=== PATIENT | female | born 2000 | race Caucasian/White ===

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

== ENCOUNTER 2021-01-15 10:19 | Observation (INO) | payer BC ==
[2021-01-15] MEDS ORDERED: Lactated Ringers 1,000 ML IV ONE (10:54)
[2021-01-15] MEDS ORDERED: Sodium Chloride 0.9% 10 ML Syringe FLUSH PRN (10:54)
[2021-01-15] MEDS ORDERED: Ondansetron 4 MG/2 ML SDV IVPUSH ONE (10:54)
[2021-01-15] MEDS ORDERED: Morphine 4 MG/ML Syringe IVPUSH ONE (10:54)
[2021-01-15] MEDS ORDERED: Sodium Chloride 0.9% 2.5 ML Syringe FLUSH PRN (10:54)
[2021-01-15] MEDS ORDERED: Ketorolac 15 MG/ML SDV IVPUSH ONE (10:54)
--- NOTE | 2021-01-15 11:00 | EDM.PDOC ---
ED HPI GENERAL MEDICAL PROBLEM - General Chief Complaint: Abdominal Pain Stated Complaint: ABDOMINAL PAIN Time Seen by Provider: 01/15/21 10:21 Source of Information: Reports: Patient History Limitations: Reports: No Limitations - History of Present Illness INITIAL COMMENTS - FREE TEXT/NARRATIVE: 20-year-old female with history of UTI presents with right-sided abdominal pain. Abdominal pain is localized to the right lower quadrant, radiates to the right adnexa, described as cramping sensation that waxes and wanes over the past week, with intermittent sharpness. Pain is moderate. Associated with nausea, vomiting, anorexia, dysuria. She has been having vaginal bleeding since December 16 and has been using about 2 pads per day, she takes Apri controls but has stopped for [address] Dyer at [place] on Tuesday and was prescribed estrogen. ROS: A 10-point review of systems, other than pertinent positives and negatives as stated per HPI, is otherwise negative Past medical history: No additional pertinent history Past Surgical history: No additional pertinent history Social history: No additional pertinent history Family history: No additional pertinent history PHYSICAL EXAM General: AOx4, GCS = 15, moderate distress HEENT: dry mucous membrane Neck: supple, no meningismus, no Kernig or Brudzinski Cardiac: S1S2 RRR Respiratory: CTAB, no crackles or rales, no wheezing Abdomen: Soft, RLQ and Right adnexal ttp, no rebound or guarding, nondistended, no pulsatile mass. : deferred per patient Back: nontender Musculoskeletal: NVI distally, no deformity Neuro: No focal deficits, CN 2 - 12 WNL. Abdominal Pain Score (Numeric/FACES): 10 - Related Data Allergies Allergy/AdvReac Type Severity Reaction Status Date / Time azithromycin [From Zithromax] Allergy Hives Verified 01/15/21 10:27 ciprofloxacin [From Cipro] Allergy Nausea and Verified 01/15/21 10:27 Vomiting clindamycin Allergy Hives Verified 01/15/21 10:27 lamotrigine [From Lamictal] Allergy Other Verified 01/15/21 10:27 oseltamivir [From Tamiflu] Allergy Other Verified 01/15/21 10:27 Home Meds: Home Meds Desogestrel-Ethinyl Estradiol [Apri 28 Day Tablet] 1 tab PO DAILY 12/08/16 [History] Escitalopram [Lexapro] 10 mg PO DAILY 12/08/16 [History] traZODone 150 mg PO BEDTIME 12/08/16 [History] Albuterol [Proventil Neb Soln] 0.83 mg NEB Q4HRRT 03/01/17 [History] OXcarbazepine [Trileptal] 300 mg PO BID 07/19/17 [History] Prazosin [Minpress] 1 mg BEDTIME 02/09/18 [History] ondansetron HCL [Zofran] 4 mg PO Q4HR #12 tablet 01/24/19 [Rx] Past Medical History - Past Health History Medical/Surgical History: Denies Medical/Surgical History HEENT History: Reports: None Cardiovascular History: Reports: None Respiratory History: Reports: Asthma Gastrointestinal History: Reports: None Genitourinary History: Reports: None COTTON DISPATCHER History: Reports: None Musculoskeletal History: Reports: None Neurological History: Reports: Other (See Below) Other Neuro History: pseudoseizure Psychiatric History: Reports: ADHD, Anxiety, Bipolar, Panic Attack, PTSD Endocrine/Metabolic History: Reports: None Hematologic History: Reports: None Immunologic History: Reports: None Oncologic (Cancer) History: Reports: None Dermatologic History: Reports: None - Infectious Disease History Infectious Disease History: Reports: Influenza - Past Surgical History Head Surgeries/Procedures: Reports: None HEENT Surgical History: Reports: Other (See Below) Other HEENT Surgeries/Procedures: blocked tear duct Cardiovascular Surgical History: Reports: None Respiratory Surgical History: Reports: None GI Surgical History: Reports: None Female Surgical History: Reports: None Endocrine Surgical History: Reports: None Neurological Surgical History: Reports: None Musculoskeletal Surgical History: Reports: None Oncologic Surgical History: Reports: None Dermatological Surgical History: Reports: None Social & Family History - Family History Family Medical History: No Pertinent Family History HEENT: Reports: Sinusitis Cardiac: Reports: CAD, Hypertension Respiratory: Reports: Asthma, COPD GI: Reports: Hepatitis, Irritable Bowel Syndrome : Reports: None OBGYN: Reports: Fibroids, Musculoskeletal: Reports: Arthritis, Fibromyalgia, Osteoarthritis, RA Neurological: Reports: Alzheimers Disease, Dementia, Migraines, Seizure, TIA Psychiatric: Reports: ADHD, Anxiety, Bipolar Endocrine/Metabolic: Reports: Hypothyroidism Hematologic: Reports: Anemia Immunologic: Reports: None Dermatologic: Reports: Eczema Oncologic: Reports: Breast, Leukemia - Caffeine Use Caffeine Use: Reports: None, Soda Caffeine Use Comment: ocassional, not every day - Living Situation & Occupation Living situation: Reports: Single, with Family Occupation: Student ED ROS GENERAL - Review of Systems Review Of Systems: See Below (see dictation) ED EXAM, GENERAL - Physical Exam Exam: See Below (see dictation) Course - Vital Signs Last Recorded V/S: Last Vital Signs Temp Pulse 97 01/15/21 14:59 Resp 16 01/15/21 14:59 BP 107/49 L 01/15/21 14:59 Pulse Ox 98 01/15/21 14:59 - Orders/Labs/Meds Orders: Active Orders 24 hr Category Date Time Status Patient Status [ADT] Routine ADT 01/15/21 15:19 Ordered CORONAVIRUS COVID-19 GRACIELA [MOLEC] Stat Lab 01/15/21 15:08 Ordered CULTURE URINE [RM] Stat Lab 01/15/21 10:23 Received Lactated Ringers [Ringers, Lactated] 1,000 ml Med 01/15/21 15:15 Active IV ASDIRECTED Sodium Chloride 0.9% [Saline Flush] Med 01/15/21 10:54 Active 10 ml FLUSH ASDIRECTED PRN Sodium Chloride 0.9% [Saline Flush] Med 01/15/21 10:54 Active 2.5 ml FLUSH ASDIRECTED PRN cefOXitin [Mefoxin in Dextrose,Iso-Osm 2 GM/50 ML] 2 gm Med 01/15/21 15:15 Active Premix Bag 1 bag IV ONETIME Saline Lock Insert [OM.PC] Stat Oth 01/15/21 10:55 Ordered Medication Orders Lactated Ringer's (Ringers, Lactated) 1,000 mls @ 150 mls/hr IV ASDIRECTED LINK Cefoxitin Sodium 2 gm/ Premix 50 mls @ 100 mls/hr IV ONETIME ONE Stop: 01/15/21 15:44 Sodium Chloride (Saline Flush) 10 ml FLUSH ASDIRECTED PRN PRN Reason: Keep Vein Open Last Admin: 01/15/21 11:12 Dose: 10 ml Documented by: [id number] Sodium Chloride (Saline Flush) 2.5 ml FLUSH ASDIRECTED PRN PRN Reason: Keep Vein Open Last Admin: 01/15/21 11:12 Dose: 2.5 ml Documented by: [id number] Labs: Laboratory Tests 01/15/21 01/15/21 01/15/21 Range/Units 10:23 10:23 10:25 WBC 7.57 (4.0-11.0) K/uL RBC 4.80 (4.30-5.90) M/uL Hgb 14.7 (12.0-16.0) g/dL Hct 43.5 (36.0-46.0) % MCV 90.6 (80.0-98.0) fL MCH 30.6 (27.0-32.0) pg MCHC 33.8 (31.0-37.0) g/dL RDW Std Deviation 40.8 (28.0-62.0) fl RDW Coeff of Vanessa 12 (11.0-15.0) % Plt Count 233 (150-400) K/uL MPV 10.20 (7.40-12.00) fL Neut % (Auto) 56.4 (48.0-80.0) % Lymph % (Auto) 35.8 (16.0-40.0) % Walton % (Auto) 7.1 (0.0-15.0) % Eos % (Auto) 0.4 (0.0-7.0) % Baso % (Auto) 0.3 (0.0-1.5) % Neut # (Auto) 4.3 (1.4-5.7) K/uL Lymph # (Auto) 2.7 H (0.6-2.4) K/uL Walton # (Auto) 0.5 (0.0-0.8) K/uL Eos # (Auto) 0.0 (0.0-0.7) K/uL Baso # (Auto) 0.0 (0.0-0.1) K/uL Nucleated RBC % 0.0 /100WBC Nucleated RBCs # 0 K/uL Lactate (0.20-2.00) mmol/L Sodium (136-145) mmol/L Potassium (3.5-5.1) mmol/L Chloride (98-107) mmol/L Carbon Dioxide (21.0-32.0) mmol/L BUN (7.0-18.0) mg/dL Creatinine (0.6-1.0) mg/dL Est Cr Clr Drug Dosing mL/min Estimated GFR (MDRD) ml/min Glucose (74-106) mg/dL Calcium (8.5-10.1) mg/dL Total Bilirubin (0.2-1.0) mg/dL AST (15-37) IU/L ALT (14-63) IU/L Alkaline Phosphatase (46-116) U/L Total Protein (6.4-8.2) g/dL Albumin (3.4-5.0) g/dL Globulin (2.6-4.0) g/dL Albumin/Globulin Ratio (0.9-1.6) Lipase (73-393) U/L Urine Color YELLOW Urine Appearance SLT CLOUDY Urine pH 7.5 (5.0-8.0) Ur Specific [place] 1.020 (1.001-1.035) Urine Protein NEGATIVE (NEGATIVE) mg/dL Urine Glucose (UA) NEGATIVE (NEGATIVE) mg/dL Urine Ketones TRACE H (NEGATIVE) mg/dL Urine Occult Blood TRACE-LYSED H (NEGATIVE) Urine Nitrite NEGATIVE (NEGATIVE) Urine Bilirubin NEGATIVE (NEGATIVE) Urine Urobilinogen 1.0 (<2.0) EU/dL Ur Leukocyte Esterase NEGATIVE (NEGATIVE) Urine RBC 0-2 (0-2/HPF) Urine WBC 0-3 (0-5/HPF) Ur Epithelial Cells FEW (NONE-FEW) Amorphous Sediment HEAVY (NEGATIVE) Urine Bacteria 2+ H (NEGATIVE) Urine Mucus LIGHT (NONE-MOD) Urine HCG, Qual NEGATIVE (NEGATIVE) 01/15/21 01/15/21 Range/Units 10:25 11:13 WBC (4.0-11.0) K/uL RBC (4.30-5.90) M/uL Hgb (12.0-16.0) g/dL Hct (36.0-46.0) % MCV (80.0-98.0) fL MCH (27.0-32.0) pg MCHC (31.0-37.0) g/dL RDW Std Deviation (28.0-62.0) fl RDW Coeff of Vanessa (11.0-15.0) % Plt Count (150-400) K/uL MPV (7.40-12.00) fL Neut % (Auto) (48.0-80.0) % Lymph % (Auto) (16.0-40.0) % Walton % (Auto) (0.0-15.0) % Eos % (Auto) (0.0-7.0) % Baso % (Auto) (0.0-1.5) % Neut # (Auto) (1.4-5.7) K/uL Lymph # (Auto) (0.6-2.4) K/uL Walton # (Auto) (0.0-0.8) K/uL Eos # (Auto) (0.0-0.7) K/uL Baso # (Auto) (0.0-0.1) K/uL Nucleated RBC % /100WBC Nucleated RBCs # K/uL Lactate 0.4 (0.20-2.00) mmol/L Sodium 141 (136-145) mmol/L Potassium 4.1 (3.5-5.1) mmol/L Chloride 105 (98-107) mmol/L Carbon Dioxide 24.6 (21.0-32.0) mmol/L BUN 10 (7.0-18.0) mg/dL Creatinine 0.7 (0.6-1.0) mg/dL Est Cr Clr Drug Dosing 92.85 mL/min Estimated GFR (MDRD) > 60.0 ml/min Glucose 94 (74-106) mg/dL Calcium 9.1 (8.5-10.1) mg/dL Total Bilirubin 0.4 (0.2-1.0) mg/dL AST 24 (15-37) IU/L ALT 53 (14-63) IU/L Alkaline Phosphatase 69 (46-116) U/L Total Protein 7.4 (6.4-8.2) g/dL Albumin 3.9 (3.4-5.0) g/dL Globulin 3.5 (2.6-4.0) g/dL Albumin/Globulin Ratio 1.1 (0.9-1.6) Lipase 46 L (73-393) U/L Urine Color Urine Appearance Urine pH (5.0-8.0) Ur Specific [place] (1.001-1.035) Urine Protein (NEGATIVE) mg/dL Urine Glucose (UA) (NEGATIVE) mg/dL Urine Ketones (NEGATIVE) mg/dL Urine Occult Blood (NEGATIVE) Urine Nitrite (NEGATIVE) Urine Bilirubin (NEGATIVE) Urine Urobilinogen (<2.0) EU/dL Ur Leukocyte Esterase (NEGATIVE) Urine RBC (0-2/HPF) Urine WBC (0-5/HPF) Ur Epithelial Cells (NONE-FEW) Amorphous Sediment (NEGATIVE) Urine Bacteria (NEGATIVE) Urine Mucus (NONE-MOD) Urine HCG, Qual (NEGATIVE) Meds: Medications Generic Name Dose Route Start Last Admin Trade Name Freq PRN Reason Stop Dose Admin Lactated Ringer's 1,000 mls @ 150 mls/hr 01/15/21 15:15 Ringers, Lactated IV ASDIRECTED LINK Cefoxitin Sodium 2 gm/ Premix 50 mls @ 100 mls/hr 01/15/21 15:15 IV 01/15/21 15:44 ONETIME ONE Sodium Chloride 10 ml 01/15/21 10:54 01/15/21 11:12 Saline Flush FLUSH 10 ml ASDIRECTED PRN Administration Keep Vein Open Sodium Chloride 2.5 ml 01/15/21 10:54 01/15/21 11:12 Saline Flush FLUSH 2.5 ml ASDIRECTED PRN Administration Keep Vein Open Discontinued Medications Generic Name Dose Route Start Last Admin Trade Name Freq PRN Reason Stop Dose Admin Lactated Ringer's 1,000 mls @ 999 mls/hr 01/15/21 10:54 01/15/21 11:12 Ringers, Lactated IV 01/15/21 11:54 999 mls/hr .BOLUS ONE Administration Iopamidol 75 ml 01/15/21 12:35 01/15/21 12:37 Isovue Multipack-370 (76%) IVPUSH 01/15/21 12:36 75 ml ONETIME STA Administration Ketorolac Tromethamine 15 mg 01/15/21 10:54 01/15/21 11:12 Toradol IVPUSH 01/15/21 10:55 15 mg ONETIME ONE Administration Morphine Sulfate 4 mg 01/15/21 10:54 01/15/21 11:13 Morphine IVPUSH 01/15/21 10:55 4 mg ONETIME ONE Administration Ondansetron HCl 4 mg 01/15/21 10:54 01/15/21 11:13 Zofran IVPUSH 01/15/21 10:55 4 mg ONETIME ONE Administration - Re-Assessments/Exams Free Text/Narrative Re-Assessment/Exam: 01/15/21 1430: Patient reassessed after Toradol and morphine, she is still exquisitely tender to right lower quadrant at McBurney's point, will consult surgery. 01/15/21 1510: Dr. Juan Alberto Azul assessed patient in the ER, he discussed the case with mom and the patient for admission for serial abdominal exam versus operative approach. Patient and mom elects to for operative approach., Departure - Departure Time of Disposition: 15:10 Disposition: Still A Patient 30 Condition: Fair Clinical Impression: Abdominal pain - Discharge Information Referrals: PCP,None [Primary Care Provider] - Forms: ED Department Discharge Sepsis Event Note (ED) - Evaluation Sepsis Screening Result: No Definite Risk - Focused Exam Vital Signs: Vital Signs Pulse Resp BP Pulse Ox 01/15/21 14:59 97 16 107/49 L 98 01/15/21 13:17 79 18 111/58 L 96 01/15/21 11:16 89 18 121/67 97 01/15/21 10:27 98 20 156/86 H 96 - My Orders Last 24 Hours: My Active Orders 01/15/21 10:23 CULTURE URINE [RM] Stat 01/15/21 10:54 Sodium Chloride 0.9% [Saline Flush] 10 ml FLUSH ASDIRECTED PRN Sodium Chloride 0.9% [Saline Flush] 2.5 ml FLUSH ASDIRECTED PRN 01/15/21 10:55 Saline Lock Insert [OM.PC] Stat 01/15/21 15:08 CORONAVIRUS COVID-19 GRACIELA [MOLEC] Stat 01/15/21 15:15 Lactated Ringers [Ringers, Lactated] 1,000 ml IV ASDIRECTED cefOXitin [Mefoxin in Dextrose,Iso-Osm 2 GM/50 ML] 2 gm Premix Bag 1 bag IV ONETIME 01/15/21 15:19 Patient Status [ADT] Routine - Assessment/Plan Last 24 Hours: My Active Orders 01/15/21 10:23 CULTURE URINE [RM] Stat 01/15/21 10:54 Sodium Chloride 0.9% [Saline Flush] 10 ml FLUSH ASDIRECTED PRN Sodium Chloride 0.9% [Saline Flush] 2.5 ml FLUSH ASDIRECTED PRN 01/15/21 10:55 Saline Lock Insert [OM.PC] Stat 01/15/21 15:08 CORONAVIRUS COVID-19 GRACIELA [MOLEC] Stat 01/15/21 15:15 Lactated Ringers [Ringers, Lactated] 1,000 ml IV ASDIRECTED cefOXitin [Mefoxin in Dextrose,Iso-Osm 2 GM/50 ML] 2 gm Premix Bag 1 bag IV ONETIME 01/15/21 15:19 Patient Status [ADT] Routine
[2021-01-15 11:13] LABS: BLOOD UREA NITROGEN,BUN 10 mg/dL (7.0-18.0); CARBON DIOXIDE,CO2 24.6 mmol/L (21.0-32.0); CHLORIDE,CL 105 mmol/L (98-107); GLUCOSE RANDOM 94 mg/dL (74-106); LIPASE 46 U/L (73-393); POTASSIUM,K 4.1 mmol/L (3.5-5.1); SODIUM,NA 141 mmol/L (136-145)
[2021-01-15] MEDS ORDERED: Iopamidol 755 MG/ML 500 ML Multipack Bottle IVPUSH STA (12:35)
--- NOTE | 2021-01-15 12:49 | US ---
INDICATION: Right adnexal pain TECHNIQUE: Ultrasound pelvis transvaginal only. COMPARISON: None FINDINGS: Uterus: 7.3 centimeter x 3.8 centimeter x 3.3 centimeter. Normal echotexture of the myometrium. No masses. Endometrium: Endometrium measures 7.6 mm in thickness small amount of fluid in the endometrial canal Right ovary: The right ovary is not visualized. Left ovary: 2.0 centimeter x 1.7 centimeter x 2.0 centimeter. No ovarian or adnexal masses. 1.5 centimeter dominant follicle. Normal arterial and venous blood flow. Cul-de-sac: No significant free fluid. IMPRESSION: The endometrium measures 7.6 millimeters in thickness with a small amount of fluid in the endometrial canal. The right ovary is not visualized. Dictated by Gennaro Singh MD @ Jan 15 2021 12:47PM Signed by Dr. Gennaro Singh @ Jan 15 2021 12:47PM
--- NOTE | 2021-01-15 13:15 | CT ---
INDICATION: Right adnexal pain TECHNIQUE: CT abdomen and pelvis acquired with IV contrast. 75 cc Isovue 370 COMPARISON: CT scan abdomen pelvis 04/19/2020 and pelvic ultrasound 01/15/2021 FINDINGS: Lower chest: Unremarkable. Liver: Unremarkable. Spleen: Unremarkable. Pancreas: Unremarkable. Gallbladder and bile ducts: Unremarkable. Kidneys: Unremarkable. Adrenal glands: Unremarkable. GI tract: Diffuse colonic fecal retention. Appendix is normal. Vascular structures: Unremarkable. Lymph nodes: Unremarkable. Miscellaneous: Fat containing umbilical hernia. No free air or significant free fluid. Pelvic Organs: The uterus, ovaries and right left adnexa are grossly normal. Bones: Unremarkable for age. IMPRESSION: The ovaries and adnexa bilaterally grossly normal. No definitive findings to explain the patient`s symptoms. Diffuse colonic fecal retention. Please note that all CT scans at this facility use dose modulation, iterative reconstruction, and/or weight-based dosing when appropriate to reduce radiation dose to as low as reasonably achievable. Dictated by Gennaro Singh MD @ Jan 15 2021 1:01PM Signed by Dr. Gennaro Singh @ Jan 15 2021 1:13PM
[2021-01-15] MEDS ORDERED: Lactated Ringers 1,000 ML IV SCH (15:15)
[2021-01-15] MEDS ORDERED: cefOXitin 2 GM in Premix Bag 1 BAG IV ONE (15:15)
--- NOTE | 2021-01-15 15:48 | PCM.PREANE ---
Preanesthetic Assessment - Anesthesia/Transfusion/Family Hx Anesthesia History: No Prior Anesthesia Family History of Anesthesia Reaction: No Transfusion History: No Prior Transfusion(s) Intubation History: Unknown - Review of Systems General: No Symptoms Pulmonary: No Symptoms Cardiovascular: No Symptoms Gastrointestinal: Abdominal Pain Neurological: No Symptoms Other: Reports: None - Physical Assessment Vital Signs: Last Vital Signs Temp Pulse 97 01/15/21 14:59 Resp 16 01/15/21 14:59 BP 107/49 L 01/15/21 14:59 Pulse Ox 98 01/15/21 14:59 Height: 4 ft 7 in Weight: 51.71 kg ASA Class: 2E Mental Status: Alert & Oriented x3 Airway Class: Mallampati = 1 Dentition: Reports: Normal Dentition Thyro-Mental Finger Breadths: 3 Mouth Opening Finger Breadths: 2 ROM/Head Extension: Full Lungs: Clear to Auscultation, Normal Respiratory Effort Cardiovascular: Regular Rate, Regular Rhythm - Lab Values: Laboratory Last Values WBC 7.57 K/uL (4.0-11.0) 01/15/21 10:25 RBC 4.80 M/uL (4.30-5.90) 01/15/21 10:25 Hgb 14.7 g/dL (12.0-16.0) 01/15/21 10:25 Hct 43.5 % (36.0-46.0) 01/15/21 10:25 MCV 90.6 fL (80.0-98.0) 01/15/21 10:25 MCH 30.6 pg (27.0-32.0) 01/15/21 10:25 MCHC 33.8 g/dL (31.0-37.0) 01/15/21 10:25 RDW Std Deviation 40.8 fl (28.0-62.0) 01/15/21 10:25 RDW Coeff of Vanessa 12 % (11.0-15.0) 01/15/21 10:25 Plt Count 233 K/uL (150-400) 01/15/21 10:25 MPV 10.20 fL (7.40-12.00) 01/15/21 10:25 Neut % (Auto) 56.4 % (48.0-80.0) 01/15/21 10:25 Lymph % (Auto) 35.8 % (16.0-40.0) 01/15/21 10:25 [place] % (Auto) 7.1 % (0.0-15.0) 01/15/21 10:25 Eos % (Auto) 0.4 % (0.0-7.0) 01/15/21 10:25 Baso % (Auto) 0.3 % (0.0-1.5) 01/15/21 10:25 Neut # (Auto) 4.3 K/uL (1.4-5.7) 01/15/21 10:25 Lymph # (Auto) 2.7 K/uL (0.6-2.4) H 01/15/21 10:25 [place] # (Auto) 0.5 K/uL (0.0-0.8) 01/15/21 10:25 Eos # (Auto) 0.0 K/uL (0.0-0.7) 01/15/21 10:25 Baso # (Auto) 0.0 K/uL (0.0-0.1) 01/15/21 10:25 Nucleated RBC % 0.0 /100WBC 01/15/21 10:25 Nucleated RBCs # 0 K/uL 01/15/21 10:25 Lactate 0.4 mmol/L (0.20-2.00) 01/15/21 11:13 Sodium 141 mmol/L (136-145) 01/15/21 10:25 Potassium 4.1 mmol/L (3.5-5.1) 01/15/21 10:25 Chloride 105 mmol/L (98-107) 01/15/21 10:25 Carbon Dioxide 24.6 mmol/L (21.0-32.0) 01/15/21 10:25 BUN 10 mg/dL (7.0-18.0) 01/15/21 10:25 Creatinine 0.7 mg/dL (0.6-1.0) 01/15/21 10:25 Est Cr Clr Drug Dosing 92.85 mL/min 01/15/21 10:25 Estimated GFR (MDRD) > 60.0 ml/min 01/15/21 10:25 Glucose 94 mg/dL (74-106) 01/15/21 10:25 Calcium 9.1 mg/dL (8.5-10.1) 01/15/21 10:25 Total Bilirubin 0.4 mg/dL (0.2-1.0) 01/15/21 10:25 AST 24 IU/L (15-37) 01/15/21 10:25 ALT 53 IU/L (14-63) 01/15/21 10:25 Alkaline Phosphatase 69 U/L (46-116) 01/15/21 10:25 Total Protein 7.4 g/dL (6.4-8.2) 01/15/21 10:25 Albumin 3.9 g/dL (3.4-5.0) 01/15/21 10:25 Globulin 3.5 g/dL (2.6-4.0) 01/15/21 10:25 Albumin/Globulin Ratio 1.1 (0.9-1.6) 01/15/21 10:25 Lipase 46 U/L (73-393) L 01/15/21 10:25 Urine Color YELLOW 01/15/21 10:23 Urine Appearance SLT CLOUDY 01/15/21 10:23 Urine pH 7.5 (5.0-8.0) 01/15/21 10:23 Ur Specific [place] 1.020 (1.001-1.035) 01/15/21 10:23 Urine Protein NEGATIVE mg/dL (NEGATIVE) 01/15/21 10:23 Urine Glucose (UA) NEGATIVE mg/dL (NEGATIVE) 01/15/21 10:23 Urine Ketones TRACE mg/dL (NEGATIVE) H 01/15/21 10:23 Urine Occult Blood TRACE-LYSED (NEGATIVE) H 01/15/21 10:23 Urine Nitrite NEGATIVE (NEGATIVE) 01/15/21 10:23 Urine Bilirubin NEGATIVE (NEGATIVE) 01/15/21 10:23 Urine Urobilinogen 1.0 EU/dL (<2.0) 01/15/21 10:23 Ur Leukocyte Esterase NEGATIVE (NEGATIVE) 01/15/21 10:23 Urine RBC 0-2 (0-2/HPF) 01/15/21 10:23 Urine WBC 0-3 (0-5/HPF) 01/15/21 10:23 Ur Epithelial Cells FEW (NONE-FEW) 01/15/21 10:23 Amorphous Sediment HEAVY (NEGATIVE) 01/15/21 10:23 Urine Bacteria 2+ (NEGATIVE) H 01/15/21 10:23 Urine Mucus LIGHT (NONE-MOD) 01/15/21 10:23 Urine HCG, Qual NEGATIVE (NEGATIVE) 01/15/21 10:23 - Allergies Allergies/Adverse Reactions: Allergies Allergy/AdvReac Type Severity Reaction Status Date / Time azithromycin [From Zithromax] Allergy Hives Verified 01/15/21 10:27 ciprofloxacin [From Cipro] Allergy Nausea and Verified 01/15/21 10:27 Vomiting clindamycin Allergy Hives Verified 01/15/21 10:27 lamotrigine [From Lamictal] Allergy Other Verified 01/15/21 10:27 oseltamivir [From Tamiflu] Allergy Other Verified 01/15/21 10:27 - Blood Blood Available: No - Anesthesia Plan Pre-Op Medication Ordered: None - Acknowledgements Anesthesia Type Planned: General Anesthesia Pt an Appropriate Candidate for the Planned Anesthesia: Yes Alternatives and Risks of Anesthesia Discussed w Pt/Guardian: Yes Pt/Guardian Understands and Agrees with Anesthesia Plan: Yes PreAnesthesia Questionnaire - Past Health History Medical/Surgical History: Denies Medical/Surgical History HEENT History: Reports: None Cardiovascular History: Reports: None Respiratory History: Reports: Asthma Gastrointestinal History: Reports: None Genitourinary History: Reports: None TOP LIFTER History: Reports: None Musculoskeletal History: Reports: None Neurological History: Reports: Other (See Below) Other Neuro History: pseudoseizure Psychiatric History: Reports: ADHD, Anxiety, Bipolar, Panic Attack, PTSD Endocrine/Metabolic History: Reports: None Hematologic History: Reports: None Immunologic History: Reports: None Oncologic (Cancer) History: Reports: None Dermatologic History: Reports: None - Infectious Disease History Infectious Disease History: Reports: Influenza - Past Surgical History Head Surgeries/Procedures: Reports: None HEENT Surgical History: Reports: Other (See Below) Other HEENT Surgeries/Procedures: blocked tear duct Cardiovascular Surgical History: Reports: None Respiratory Surgical History: Reports: None GI Surgical History: Reports: None Female Surgical History: Reports: None Endocrine Surgical History: Reports: None Neurological Surgical History: Reports: None Musculoskeletal Surgical History: Reports: None Oncologic Surgical History: Reports: None Dermatological Surgical History: Reports: None - SUBSTANCE USE Tobacco Use Within Last Twelve Months: No - HOME MEDS Home Medications: Home Meds Desogestrel-Ethinyl Estradiol [Apri 28 Day Tablet] 1 tab PO DAILY 12/08/16 [History] Escitalopram [Lexapro] 10 mg PO DAILY 12/08/16 [History] traZODone 150 mg PO BEDTIME 12/08/16 [History] Albuterol [Proventil Neb Soln] 0.83 mg NEB Q4HRRT 03/01/17 [History] OXcarbazepine [Trileptal] 300 mg PO BID 07/19/17 [History] Prazosin [Minpress] 1 mg BEDTIME 02/09/18 [History] ondansetron HCL [Zofran] 4 mg PO Q4HR #12 tablet 01/24/19 [Rx] - CURRENT (IN HOUSE) MEDS Current Meds: Current Medications Lactated Ringer's (Ringers, Lactated) 1,000 mls @ 150 mls/hr IV ASDIRECTED LINK Last Admin: 01/15/21 15:34 Dose: 150 mls/hr Documented by: Cefoxitin Sodium 2 gm/ Premix 50 mls @ 100 mls/hr IV ONETIME ONE Stop: 01/15/21 15:44 Last Admin: 01/15/21 15:34 Dose: 100 mls/hr Documented by: Sodium Chloride (Saline Flush) 10 ml FLUSH ASDIRECTED PRN PRN Reason: Keep Vein Open Last Admin: 01/15/21 11:12 Dose: 10 ml Documented by: Sodium Chloride (Saline Flush) 2.5 ml FLUSH ASDIRECTED PRN PRN Reason: Keep Vein Open Last Admin: 01/15/21 11:12 Dose: 2.5 ml Documented by: Discontinued Medications Lactated Ringer's (Ringers, Lactated) 1,000 mls @ 999 mls/hr IV .BOLUS ONE Stop: 01/15/21 11:54 Last Admin: 01/15/21 11:12 Dose: 999 mls/hr Documented by: Iopamidol (Isovue Multipack-370 (76%)) 75 ml IVPUSH ONETIME STA Stop: 01/15/21 12:36 Last Admin: 01/15/21 12:37 Dose: 75 ml Documented by: Ketorolac Tromethamine (Toradol) 15 mg IVPUSH ONETIME ONE Stop: 01/15/21 10:55 Last Admin: 01/15/21 11:12 Dose: 15 mg Documented by: Morphine Sulfate (Morphine) 4 mg IVPUSH ONETIME ONE Stop: 01/15/21 10:55 Last Admin: 01/15/21 11:13 Dose: 4 mg Documented by: Ondansetron HCl (Zofran) 4 mg IVPUSH ONETIME ONE Stop: 01/15/21 10:55 Last Admin: 01/15/21 11:13 Dose: 4 mg Documented by:
[2021-01-15] MEDS ORDERED: Ondansetron 4 MG/2 ML SDV ONE (16:23)
[2021-01-15] MEDS ORDERED: Midazolam 1 MG/ML 2 ML SDV ONE (16:23)
[2021-01-15] MEDS ORDERED: Rocuronium Bromide 50 MG/5 ML Syringe ONE (16:23)
[2021-01-15] MEDS ORDERED: Dexamethasone 4 MG/ML 5 ML MDV ONE (16:23)
[2021-01-15] MEDS ORDERED: fentaNYL 100 MCG/2 ML SDV ONE (16:23)
[2021-01-15] MEDS ORDERED: Lidocaine 2% 5 ML SDV ONE (16:23)
[2021-01-15] MEDS ORDERED: Propofol 200 MG/20 ML SDV ONE (16:23)
[2021-01-15] MEDS ORDERED: Ketorolac 30 MG/ML SDV IVPUSH ONE ×2 (18:26→20:37)
--- NOTE | 2021-01-15 19:10 | PCM.SN.2 ---
- Free Text/Narrative Note: pain no relieve w pain meds, and peritoneal upon jumping up and down and when riding in the car; CT remarked appendix is normal in appearance; with unrelenting pain, and n/v in 24 hrs; pt would benefit from surgical intervention; rb dw pt and mom, possible take out a early appendicitis appendix; pt concurred and proceed w surgery
[2021-01-15] MEDS ORDERED: Glycopyrrolate 0.2 MG/ML SDV ONE (19:58)
[2021-01-15] MEDS ORDERED: fentaNYL 100 MCG/2 ML SDV IVPUSH PRN (20:04)
--- NOTE | 2021-01-15 20:22 | PCM.OPNOTE ---
- General Post-Op/Procedure Note Date of Surgery/Procedure: 01/15/21 Operative Procedure(s): lap appendectomy Findings: early appendicitis; hyperemic, gross perf not observed; [id number] Pre Op Diagnosis: acute appendicitis Post-Op Diagnosis: Same Anesthesia Technique: General ET Tube Primary Surgeon: Juan Alberto Azul Pathology: sent Complications: None Condition: Good
[2021-01-15] MEDS ORDERED: cefOXitin 1 GM in Premix Bag 1 BAG IV ONE (20:24)
[2021-01-15] MEDS ORDERED: Ondansetron 4 MG/2 ML SDV IVPUSH PRN (20:25)
--- NOTE | 2021-01-15 20:59 | PCM.POSTAN ---
POST ANESTHESIA ASSESSMENT - MENTAL STATUS Mental Status: Alert, Oriented - VITAL SIGNS Vital Signs: Last Vital Signs Temp 36.8 C 01/15/21 20:24 Pulse 68 01/15/21 20:52 Resp 10 L 01/15/21 20:52 BP 118/57 L 01/15/21 20:52 Pulse Ox 100 01/15/21 20:52 - RESPIRATORY Respiratory Status: Respiratory Rate WNL, Airway Patent, O2 Saturation Stable - CARDIOVASCULAR CV Status: Pulse Rate WNL, Blood Pressure Stable - GASTROINTESTINAL GI Status: No Symptoms - PAIN Pain Score: 4 - POST OP HYDRATION Hydration Status: Adequate & Stable
[2021-01-15] MEDS: Lactated Ringers 1,000 ML IV SCH (22:30)
[2021-01-15] MEDS: Acetaminophen/oxyCODONE 325-5 MG Tab PO PRN (23:18)
--- NOTE | 2021-01-15 23:21 | HP ---
DATE OF : 2000 PRIMARY CARE PHYSICIAN: None PCP Consult from Dr. Melgar. CONSULTING QUESTION: Severe abdominal pain in the right lower quadrant. HISTORY OF PRESENT ILLNESS: The patient is a 20-year-old lady complaining of a 5- to 6-day history of gradual onset of periumbilical pain, subsequently migrated to the right lower quadrant and sought help in the emergency room, even getting morphine and Toradol, still complaining lot of pain. CAT scan shows no appendicitis and white count is 7.6. PAST MEDICAL HISTORY: No diabetes, AL, CVA, hypertension. PAST SURGICAL HISTORY: No abdominal surgery. ALLERGIES: Please refer to nursing for details. MEDICATIONS: Please refer to nursing for details. PHYSICAL EXAMINATION: GENERAL: A very pleasant lady, in no acute distress upon examination. HEENT: Normocephalic, atraumatic. Sclerae are anicteric. LUNGS: Clear to auscultation. HEART: Regular rate and rhythm. ABDOMEN: Soft, nondistended. No pulsating tender midline abdominal structure. No surgical scar. No umbilical hernia. Exquisite tenderness in the right lower quadrant and positive Rovsing sign. Positive straight leg raising sign with tear. when asked to jump, The patient jumped and come back completely tearful and holding her abdomen. IMPRESSION; Excruciating tenderness of the right lower quadrant with positive straight leg raising sign, positive Rovsing sign in a patient, either observation or going to surgery and there is a possibility we will take out normal appendix. Family and the patient preferred to proceed with surgery. We will start with IV fluid, antibiotic and proceed with appendectomy, laparoscopic versus open. RON / BEN /[id number]
--- NOTE | 2021-01-15 23:24 | OR ---
SURGEON: Juan Alberto Azul MD DATE OF PROCEDURE: 01/15/2021 PREOPERATIVE DIAGNOSIS: Acute appendicitis. POSTOPERATIVE DIAGNOSIS: Early appendicitis. PROCEDURE PERFORMED: Laparoscopic appendectomy PRIMARY SURGEON: Juan Alberto Azul MD. COMPLICATIONS: None. FINDING: Appendix was indurated and hyperemic, and gross perforation observed. PROCEDURE IN DETAIL: The patient was taken to the operating room and placed in the supine position. Following induction of general endotracheal anesthesia, the patient's abdomen was prepped and draped in the sterile fashion. A time-out has been called. The patient was identified. The procedure was identified. The antibiotics were identified. The procedure then proceeded. The abdomen was prepped and draped in a standard fashion. After assessment of appropriate landmarks, a 12 millimeter trocar was inserted supraumbilically using Optiview and pneumoperitoneum was then achieved. This was followed with placement of 5 millimeter port in the right upper quadrant and another 5 millimeter port infraumbilically. The camera was inserted supraumbilical site and two laparoscopic Craig retractors were then inserted through the other two sites. Following the cecum, the appendix was located. The appendix was then lifted up, and using a GI stapler the appendix was amputated at the base. And using the GI stapler, the mesoappendix was then amputated. The appendix was retrieved by an endoscopic bag and sent for pathologist. This was then followed by re-insertion of the camera to examine the staple line, and hemostasis. The trocars were then removed. The umbilical site was closed with 2-0 Vicryl deep stitch and 4 -0 Vicryl and dermabond; the other 2 5 mm port sites were closed with 4-0 Vicryl and dermabond. The patient was then awakened, extubated, and transferred to the recovery room in hemodynamically stable condition. Prior to closing, sponge count and instrument count was correct. Dr. Azul was present throughout the whole procedure. As always, thank you for the kind referral. RON / BEN /[id number]
[2021-01-16] MEDS ORDERED: cefOXitin 1 GM in Premix Bag 1 BAG IV ONE (00:59)
[2021-01-16] MEDS: Acetaminophen/oxyCODONE 325-5 MG Tab PO PRN ×2 (05:57→11:22)
--- NOTE | 2021-01-16 06:40 | PCM48HPAN ---
Post Anesthesia Note - EVALUATION WITHIN 48HRS OF ANESTHETIC Vital Signs in Normal Range: Yes Patient Participated in Evaluation: Yes Respiratory Function Stable: Yes Airway Patent: Yes Cardiovascular Function Stable: Yes Hydration Status Stable: Yes Pain Control Satisfactory: Yes Nausea and Vomiting Control Satisfactory: Yes Mental Status Recovered: Yes Vital Signs: Last Vital Signs Temp 36.6 C 01/16/21 04:30 Pulse 78 01/16/21 04:30 Resp 16 01/16/21 04:30 BP 116/57 L 01/16/21 04:30 Pulse Ox 97 01/16/21 04:30
[2021-01-16] MEDS: Lactated Ringers 1,000 ML IV SCH (07:39)
[2021-01-16 10:52] VITALS: BP 109/62; PULSE 77
--- NOTE | 2021-01-20 15:36 | PCM.SN.2 ---
- Free Text/Narrative Note: [facility] [id number]
--- NOTE | 2021-01-21 08:27 | DISCH ---
DATE OF DISCHARGE: 01/16/2021 PRIMARY CARE PHYSICIAN: None PCP DIAGNOSIS: Appendicitis. Please refer to admission history and physical for detail. In summary, the patient presented with a severe abdominal pain. CAT scan is normal appendicitis and white count is normal, but excruciating pain and not resolved with pain medication. Surgery was then consulted. HOSPITAL COURSE: The patient was taken to operating by myself, status post appendectomy. Appendix was indurated, hyperemic, and consistent with early appendicitis. Postop, the patient was released to the floor and oral diet started the next day and pain resolved and able to take p.o. without problem and void and pain is in control and ambulated by self. The patient was then discharged home with pain medication and antibiotic. RON / BEN /[id number]
== END 2021-01-16 12:23 | disposition home or self-care (01) ==
LOC: MW.ED 10:19 → MW.SDS 15:43 → MW.MS 15:44 → MW.SDS 19:25
PROVIDERS: ADMIT Surgery; ATTEND Surgery
DX: K35.80 Unspecified acute appendicitis (principal); J45.909 Unspecified asthma, uncomplicated; Z20.822 Contact with and (suspected) exposure to COVID-19; Z01.812 Encounter for preprocedural laboratory examination; Z88.8 Allergy status to other drugs, medicaments and biological substances; Z79.899 Other long term (current) drug therapy; Z88.1 Allergy status to other antibiotic agents
CPT/HCPCS: 00840; 36415; 74177; 74177-26; 76856; 76856-26; 80053; 81001; 81025; 83605; 83690; 85025; 87086; 88304; 96365; 96375; 96376; 99284; 99285-25; A9270-GY; C1776; J0694; J1100; J1885; J2250; J2270; J2405; J2704; J3010; J3490; J7120; Q9967; U0002

== ENCOUNTER 2021-07-02 18:06 | Emergency (ER) | payer BC ==
[2021-07-02] MEDS: predniSONE 20 MG Tab PO ONE (19:13)
--- NOTE | 2021-07-02 19:15 | EDM.PDOC ---
ED HPI GENERAL MEDICAL PROBLEM - General Chief Complaint: Respiratory Problem Stated Complaint: CAN'T BREATH Time Seen by Provider: 07/02/21 18:17 Source of Information: Reports: Patient History Limitations: Reports: No Limitations - History of Present Illness INITIAL COMMENTS - FREE TEXT/NARRATIVE: HISTORY AND PHYSICAL: History of present illness: Patient is a 21-year-old female who presents to the emergency room with complaints of cough and sore throat. She states she has a history of asthma, has been using her rescue inhaler without relief. She was seen at the walk-in clinic and swabbed for strep throat, this was negative. She refuses COVID-19 testing. Patient denies any fever, chills, headache, change in vision, syncope or near syncope. Denies any chest pain, back pain, shortness of breath or hemoptysis. Denies any GI or symptoms. Denies any concern for , currently on her menstrual period. She has been eating and drinking appropriately. Review of systems: As per history of present illness and below otherwise all systems reviewed and negative. Past medical history: As per history of present illness and as reviewed below otherwise noncontr ibutory. Surgical history: As per history of present illness and as reviewed below otherwise noncontributory. Social history: See social history for further information Family history: As per history of present illness and as reviewed below otherwise noncontributory. Physical exam: General: Well developed and well nourished. Alert and orientated x 3. Nontoxic in appearance and in no acute distress. Vital signs are stable and have been reviewed by me. Nursing notes were reviewed. HEENT: Atraumatic, normocephalic, pupils equal and reactive bilaterally, negative for conjunctival pallor or scleral icterus, mucous membranes moist, TMs normal bilaterally, pain and redness noted in the canal of left ear at the 3 o'clock position, throat clear, neck supple, nontender, trachea midline. No d rooling or trismus noted. No meningeal signs. No hot potato voice noted. Lungs: Fine expiratory wheezing noted to auscultation bilaterally. No rales, or rhonchi. Chest nontender. Normal work of breathing, no accessory muscles used. Heart: S1S2, regular rate and rhythm without overt murmur, gallops, or rubs. No JVD. No peripheral edema Abdomen: Soft, nondistended, nontender. Normoactive bowel sounds. Negative for masses or costovertebral tenderness. Skin: Intact, warm, dry. No lesions or rashes noted. Hematologic: No petechiae or purpra. Mucosa appropriate color and normal nail bed color and refill. Extremities: Atraumatic, moves all extremities per self without difficulty or deficits, negative for cords or calf pain. Neurovascular unremarkable. Neuro: Awake, alert, oriented. Cranial nerves II through XII unremarkable. Cerebellum unremarkable. Motor and sensory unremarkable throughout. Exam nonfocal. Psychiatric: Mood and affect are appropriate. Normal thought process. Answering questions appropriately. Notes: *This patient was seen and evaluated during the 2019 SARS-CoV-2 novel coronavirus pandemic period. Community viral transmission is ongoing at time of this encounter and the emergency department is operating under pandemic response procedures. I have talked with the patient about today's findings, in addition to providing specific details for plan of care. Reassessment at the time of disposition demonstrates that the patient is in no acute distress. The patient is stable for discharge, counseling was provided and we discussed in great detail signs and symptoms that would prompt them to return to the Emergency Department. Medication, follow up and supportive care measures were reviewed and discussed. Voices understanding and is agreeable to plan of care. Denies any further questions or concerns at this time. Diagnostics: CXR Therapeutics: Prednisone Prescription: Prednisone Impression: URI External ear infection, left Plan: 1. You were evaluated today on an emergent basis. Your x-ray shows no pneumonia. Please take the steroid as directed. Tessalon Emma as needed for cough. 2. You can alternate Tylenol and ibuprofen as needed for pain and fever management. 3. We encourage you to follow up with your primary care provider and/or recommended specialist in the next few days for re-evaluation and further care/management. 4. If your symptoms should worsen, new symptoms develop or any of the signs and symptoms we discussed should arise please return to the emergency room or call 911 (if needed). Definitive disposition and diagnosis as appropriate pending reevaluation and review of above. Bilateral Throat Pain Score (Numeric/FACES): 9 - Related Data Allergies Allergy/AdvReac Type Severity Reaction Status Date / Time azithromycin [From Zithromax] Allergy Hives Verified 07/02/21 18:30 ciprofloxacin [From Cipro] Allergy Nausea and Verified 07/02/21 18:30 Vomiting clindamycin Allergy Hives Verified 07/02/21 18:30 lamotrigine [From Lamictal] Allergy Other Verified 07/02/21 18:30 oseltamivir [From Tamiflu] Allergy Other Verified 07/02/21 18:30 Home Meds: Home Meds Desogestrel-Ethinyl Estradiol [Apri 28 Day Tablet] 1 tab PO DAILY 12/08/16 [History] Escitalopram [Lexapro] 10 mg PO DAILY 12/08/16 [History] traZODone 150 mg PO BEDTIME 12/08/16 [History] Albuterol [Proventil Neb Soln] 0.83 mg NEB Q4HRRT 03/01/17 [History] OXcarbazepine [Trileptal] 300 mg PO BID 07/19/17 [History] Prazosin [Minpress] 2 mg BEDTIME 02/09/18 [History] ARIPiprazole [Abilify] 10 mg PO BEDTIME 01/15/21 [History] ondansetron HCL [Zofran] 4 mg PO Q4HR PRN 01/15/21 [History] Benzonatate [Tessalon Perle] 100 mg PO TID PRN #20 capsule 07/02/21 [Rx] Hydrocortisone/Acetic Acid [Hydrocortison-Acetic Acid Soln] 5 drop OT QID 5 Days #1 bottle 07/02/21 [Rx] Past Medical History - Past Health History Medical/Surgical History: Denies Medical/Surgical History HEENT History: Reports: None Cardiovascular History: Reports: None Respiratory History: Reports: Asthma Gastrointestinal History: Reports: None Genitourinary History: Reports: None RUNNING SPECIALIST History: Reports: Other (See Below) Other RUNNING SPECIALIST History: Vulvodynia Musculoskeletal History: Reports: None Neurological History: Reports: Other (See Below) Other Neuro History: pseudoseizure Psychiatric History: Reports: ADHD, Anxiety, Bipolar, Depression, Emotional Problems, Hallucinations, Learning Disability, Mood Swings, Panic Attack, Psych Hospitalization(s), PTSD, Schizophrenia, Suicide Attempt Endocrine/Metabolic History: Reports: None Hematologic History: Reports: None Immunologic History: Reports: None Oncologic (Cancer) History: Reports: None Dermatologic History: Reports: None - Infectious Disease History Infectious Disease History: Reports: Influenza - Past Surgical History Head Surgeries/Procedures: Reports: None HEENT Surgical History: Reports: Other (See Below) Other HEENT Surgeries/Procedures: Blocked tear duct Cardiovascular Surgical History: Reports: None Respiratory Surgical History: Reports: None GI Surgical History: Reports: None Female Surgical History: Reports: None Endocrine Surgical History: Reports: None Neurological Surgical History: Reports: None Musculoskeletal Surgical History: Reports: None Oncologic Surgical History: Reports: None Dermatological Surgical History: Reports: None Social & Family History - Family History Family Medical History: No Pertinent Family History HEENT: Reports: Sinusitis Cardiac: Reports: CAD, Hypertension Respiratory: Reports: Asthma, COPD GI: Reports: Hepatitis, Irritable Bowel Syndrome : Reports: None OBGYN: Reports: Fibroids, Musculoskeletal: Reports: Arthritis, Fibromyalgia, Osteoarthritis, RA Neurological: Reports: Alzheimers Disease, Dementia, Migraines, Seizure, TIA Psychiatric: Reports: ADHD, Anxiety, Bipolar Endocrine/Metabolic: Reports: Hypothyroidism Hematologic: Reports: Anemia Immunologic: Reports: None Dermatologic: Reports: Eczema Oncologic: Reports: Breast, Leukemia - Caffeine Use Caffeine Use: Reports: Coffee, Soda, Tea Caffeine Use Comment: ocassional, not every day - Living Situation & Occupation Living situation: Reports: Single, with Family Occupation: Student ED ROS GENERAL - Review of Systems Review Of Systems: Comprehensive ROS is negative, except as noted in HPI. ED EXAM, GENERAL - Physical Exam Exam: See Below (See dictation) Course - Vital Signs Last Recorded V/S: Last Vital Signs Temp 97.6 F 07/02/21 18:33 Pulse 102 H 07/02/21 18:33 Resp 20 07/02/21 18:33 BP 120/70 07/02/21 18:33 Pulse Ox 97 07/02/21 18:33 - Orders/Labs/Meds Orders: Active Orders 24 hr Category Date Time Status Chest 2V [CR] Stat Exams 07/02/21 18:42 Taken Meds: Medications Discontinued Medications Generic Name Dose Route Start Last Admin Trade Name Freq PRN Reason Stop Dose Admin Prednisone 40 mg 07/02/21 18:42 07/02/21 19:13 Prednisone 20 Mg Tab PO 07/02/21 18:43 40 mg ONETIME ONE Administration Departure - Departure Time of Disposition: 19:24 Disposition: Home, Self-Care 01 Clinical Impression: URI (upper respiratory infection) Qualifiers: URI type: unspecified viral URI Qualified Code(s): J06.9 - Acute upper respiratory infection, unspecified Otitis externa Qualifiers: Otitis externa type: unspecified type Chronicity: acute Laterality: left Qualified Code(s): H60.502 - Unspecified acute noninfective otitis externa, left ear - Discharge Information Prescriptions: Hydrocortisone/Acetic Acid [Hydrocortison-Acetic Acid Soln] 5 drop OT QID 5 Days #1 bottle Benzonatate [Tessalon Perle] 100 mg PO TID PRN #20 capsule PRN Reason: Cough Instructions: Upper Respiratory Infection, Adult, [id number] Referrals: Jeyson Mckeon MD [Primary Care Provider] - Forms: ED Department Discharge Additional Instructions: The following information is given to patients seen in the emergency department who are being discharged to home. This information is to outline your options for follow-up care. We provide all patients seen in our emergency department with a follow-up referral. The need for follow-up, as well as the timing and circumstances, are variable depending upon the specifics of your emergency department visit. If you don't have a primary care physician on staff, we will provide you with a referral. We always advise you to contact your personal physician following an emergency department visit to inform them of the circumstance of the visit and for follow-up with them and/or the need for any referrals to a consulting specialist. The emergency department will also refer you to a specialist when appropriate. This referral assures that you have the opportunity for follow-up care with a specialist. All of these measure are taken in an effort to provide you with optimal care, which includes your follow-up. Under all circumstances we always encourage you to contact your private physician who remains a resource for coordinating your care. When calling for follow-up care, please make the office aware that this follow-up is from your recent emergency room visit. If for any reason you are refused follow-up, please contact the [facility] Emergency Department at and asked to speak to the emergency department charge nurse. [facility] [address] [place] [id number] [id number] [place] [address] Thank you for choosing the [facility] emergency department in [place] for your medical needs today. It was a pleasure caring for you. Today you were seen in the emergency department for URI. 1. You were evaluated today on an emergent basis. Your x-ray shows no pneumonia. Please take the steroid as directed. Tessalon Emma as needed for cough. 2. You can alternate Tylenol and ibuprofen as needed for pain and fever management. 3. We encourage you to follow up with your primary care provider and/or recommended specialist in the next few days for re-evaluation and further care/management. 4. If your symptoms should worsen, new symptoms develop or any of the signs and symptoms we discussed should arise please return to the emergency room or call 911 (if needed). Sepsis Event Note (ED) - Focused Exam Vital Signs: Vital Signs Temp Pulse Resp BP Pulse Ox 07/02/21 18:33 97.6 F 102 H 20 120/70 97 - My Orders Last 24 Hours: My Active Orders 07/02/21 18:42 Chest 2V [CR] Stat - Assessment/Plan Last 24 Hours: My Active Orders 07/02/21 18:42 Chest 2V [CR] Stat
[2021-07-02 22:47] VITALS: BP 119/64; PULSE 84
[2021-07-03] MEDS: predniSONE 20 MG Tab PO ONE (23:39)
--- NOTE | 2021-07-06 11:27 | CR ---
INDICATION: Chest pain and shortness of breath TECHNIQUE: Chest 2 views COMPARISON: 12/08/2016 FINDINGS: Cardiovascular and mediastinum: Heart size and vasculature are normal in caliber and appearance. Lungs and pleural spaces: Lungs are clear. No sign of infiltrate or mass. No sign of pleural effusion. No pneumothorax. Bones and soft tissues: No significant findings. IMPRESSION: No acute findings and no significant changes from the prior exam. Dictated by Tod Gallo MD @ 07/06/2021 11:12:30 AM Signed by: Tod Gallo MD @07/06/2021 11:12:30 AM (Electronic Signature) [facility]
== END 2021-07-02 19:45 | disposition home or self-care (01) ==
LOC: MW.ED 18:06
DX: J06.9 Acute upper respiratory infection, unspecified (principal); H60.502 Unspecified acute noninfective otitis externa, left ear; Z88.1 Allergy status to other antibiotic agents; Z88.8 Allergy status to other drugs, medicaments and biological substances
CPT/HCPCS: 71046; 71046-26; 99283-25; A9270-GY

== ENCOUNTER 2022-01-29 14:39 | Emergency (ER) | payer BC ==
[2022-01-29] MEDS ORDERED: Sodium Chloride 0.9% 2.5 ML Syringe FLUSH PRN (14:45)
[2022-01-29] MEDS ORDERED: Sodium Chloride 0.9% 10 ML Syringe FLUSH PRN (14:45)
[2022-01-29] MEDS ORDERED: Ondansetron 4 MG/2 ML SDV IVPUSH ONE (15:00)
[2022-01-29] MEDS ORDERED: Morphine 2 MG/ML SYRINGE IVPUSH ONE ×2 (15:01→16:22)
[2022-01-29] MEDS ORDERED: Sodium Chloride 0.9% 1,000 ML IV ONE (15:02)
[2022-01-29 15:32] LABS: BLOOD UREA NITROGEN,BUN 12 mg/dL (7.0-18.0); CARBON DIOXIDE,CO2 26.7 mmol/L (21.0-32.0); CHLORIDE,CL 104 mmol/L (98-107); GLUCOSE RANDOM 76 mg/dL (74-106); LIPASE 42 U/L (73-393); SODIUM,NA 140 mmol/L (136-145)
[2022-01-29] MEDS ORDERED: Iopamidol 755 Mg/ML 100 ML Bottle IVPUSH ONE (16:27)
[2022-01-29] MEDS ORDERED: HYDROmorphone 2 MG/ML Syringe IVPUSH ONE (16:53)
[2022-01-29 17:23] LABS: CORONAVIRUS COVID-19 NAA NEGATIVE (NEGATIVE); INFLUENZA A NAA NEGATIVE (NEGATIVE); INFLUENZA B NAA NEGATIVE (NEGATIVE)
[2022-01-29 19:31] VITALS: BP 109/52; PULSE 76
== END 2022-01-29 19:29 | disposition home or self-care (01) ==
LOC: MW.ED 14:39
DX: N83.201 Unspecified ovarian cyst, right side (principal); Z88.1 Allergy status to other antibiotic agents; Z20.822 Contact with and (suspected) exposure to COVID-19
CPT/HCPCS: 0240U; 36415; 74178; 76830; 80053; 81003; 83690; 84703; 85025; 96374; 96375; 96376; 99284; J1170; J2270; J2405; J7030; Q9967

== ENCOUNTER 2022-02-06 21:05 | Emergency (ER) | payer BC ==
[2022-02-06] MEDS ORDERED: Sodium Chloride 0.9% 2.5 ML Syringe FLUSH PRN (21:26)
[2022-02-06] MEDS ORDERED: Sodium Chloride 0.9% 10 ML Syringe FLUSH PRN (21:26)
[2022-02-06] MEDS ORDERED: Ondansetron 4 MG/2 ML SDV IVPUSH ONE (21:27)
[2022-02-06] MEDS ORDERED: Sodium Chloride 0.9% 1,000 ML IV ONE (21:27)
[2022-02-06] MEDS ORDERED: HYDROmorphone 1 MG/ML Syringe IVPUSH ONE (21:29)
[2022-02-06] MEDS ORDERED: LORazepam 2 MG/ML SDV IVPUSH ONE (21:57)
[2022-02-06 22:02] LABS: BLOOD UREA NITROGEN,BUN 12 mg/dL (7.0-18.0); CHLORIDE,CL 103 mmol/L (98-107); GLUCOSE RANDOM 92 mg/dL (74-106); POTASSIUM,K 3.5 mmol/L (3.5-5.1); SODIUM,NA 138 mmol/L (136-145)
[2022-02-06 22:17] LABS: CORONAVIRUS COVID-19 NAA NEGATIVE (NEGATIVE); INFLUENZA A NAA NEGATIVE (NEGATIVE); INFLUENZA B NAA NEGATIVE (NEGATIVE)
[2022-02-07 00:13] VITALS: BP 116/65; PULSE 102
== END 2022-02-06 23:13 | disposition home or self-care (01) ==
LOC: MW.ED 21:05
DX: R10.2 Pelvic and perineal pain (principal); F41.9 Anxiety disorder, unspecified; F32.A Depression, unspecified; Z88.0 Allergy status to penicillin; Z88.1 Allergy status to other antibiotic agents; Z88.8 Allergy status to other drugs, medicaments and biological substances; Z79.899 Other long term (current) drug therapy; Z20.822 Contact with and (suspected) exposure to COVID-19
CPT/HCPCS: 0240U; 36415; 74176; 80053; 81003; 81025; 83735; 85025; 96374; 96375; 99284; J1170; J2060; J2405; J7030

== ENCOUNTER 2022-03-22 08:02 | Day surgery (SDC) | payer BC ==
[~2022-03-22 08:02] MED LIST: Albuterol 0.083% 2.5 MG/3 ML Neb Soln NEB PRN; Bupivacaine 0.25% 30 ML SDV ONE; HYDROmorphone 1 MG/ML Syringe IVPUSH PRN; Lactated Ringers 1,000 ML IV SCH; Methylene Blue 50 MG/10 ML Ampule ONE; Metoclopramide 10 MG/2 ML SDV IVPUSH PRN; Morphine 4 MG/ML VIAL IVPUSH PRN; Naloxone 0.4 MG/ML SDV IVPUSH PRN; Octyl 2-Cyanoacrylate 1 Tube ONE; Ondansetron 4 MG/2 ML SDV IVPUSH PRN; Scopolamine 1.5 MG Transdermal Patch TOP ONE; fentaNYL 100 MCG/2 ML SDV IVPUSH PRN
[2022-03-22] MEDS ORDERED: Propofol 200 MG/20 ML SDV ONE (08:13)
[2022-03-22] MEDS ORDERED: fentaNYL 250 MCG/5 ML SDV ONE (08:13)
[2022-03-22] MEDS ORDERED: Scopolamine 1.5 MG Transdermal Patch ONE (08:20)
[2022-03-22] MEDS ORDERED: Famotidine 20 MG/2 ML SDV ONE (08:58)
[2022-03-22 09:16] LABS: BLOOD UREA NITROGEN,BUN 14 mg/dL (7.0-18.0); CARBON DIOXIDE,CO2 22.3 mmol/L (21.0-32.0); CHLORIDE,CL 104 mmol/L (98-107); GLUCOSE RANDOM 85 mg/dL (74-106); SODIUM,NA 138 mmol/L (136-145)
[2022-03-22] MEDS ORDERED: Rocuronium Bromide 50 MG/5 ML Syringe ONE (10:05)
[2022-03-22] MEDS ORDERED: Ondansetron 4 MG/2 ML SDV ONE (10:05)
[2022-03-22] MEDS ORDERED: Glycopyrrolate 0.2 MG/ML SDV ONE (10:05)
[2022-03-22] MEDS ORDERED: Dexamethasone 4 MG/ML 5 ML MDV ONE (10:05)
[2022-03-22] MEDS ORDERED: Sugammadex Sodium 200 MG/2 ML VIAL ONE (10:05)
[2022-03-22] MEDS ORDERED: Ketorolac 30 MG/ML SDV ONE (10:05)
[2022-03-22] MEDS ORDERED: Acetaminophen/HYDROcodone 325-5 MG Tab PO PRN (10:52)
[2022-03-22 11:44] VITALS: BP 100/51; PULSE 70
== END 2022-03-22 12:50 | disposition home or self-care (01) ==
LOC: MW.SDS 08:02
PROVIDERS: ATTEND Obstetrics & Gynecology
DX: N80.9 Endometriosis, unspecified (principal); J45.909 Unspecified asthma, uncomplicated; F32.A Depression, unspecified; Z90.49 Acquired absence of other specified parts of digestive tract; Z98.890 Other specified postprocedural states; Z79.899 Other long term (current) drug therapy; Z88.1 Allergy status to other antibiotic agents; Z88.8 Allergy status to other drugs, medicaments and biological substances
CPT/HCPCS: 36415; 58558; 58662; 80053; 81025; 85027; 86850; 86900; 86901; A9270; J0131; J1100; J1885; J2405; J2704; J3010; J3490; J7120; 00952

== ENCOUNTER 2022-03-24 07:14 | Emergency (ER) | payer BC ==
[2022-03-24] MEDS ORDERED: Ondansetron 4 MG/2 ML SDV IVPUSH ONE (07:41)
[2022-03-24] MEDS ORDERED: fentaNYL 50 MCG/ML SDV IVPUSH ONE (07:41)
[2022-03-24] MEDS ORDERED: Sodium Chloride 0.9% 1,000 ML IV ONE (07:41)
[2022-03-24] MEDS ORDERED: Ketorolac 30 MG/ML SDV IVPUSH ONE (07:41)
[2022-03-24] MEDS ORDERED: Sodium Chloride 0.9% 10 ML Syringe FLUSH PRN (07:41)
[2022-03-24] MEDS ORDERED: Sodium Chloride 0.9% 2.5 ML Syringe FLUSH PRN (07:41)
[2022-03-24 08:31] LABS: BLOOD UREA NITROGEN,BUN 13 mg/dL (7.0-18.0); CHLORIDE,CL 104 mmol/L (98-107); GLUCOSE RANDOM 89 mg/dL (74-106); LIPASE 25 U/L (73-393); POTASSIUM,K 4.1 mmol/L (3.5-5.1); SODIUM,NA 140 mmol/L (136-145)
[2022-03-24] MEDS ORDERED: Iopamidol 755 MG/ML 500 ML Multipack Bottle IVPUSH STA (09:36)
[2022-03-24 11:17] VITALS: BP 98/56; PULSE 68
== END 2022-03-24 11:15 | disposition home or self-care (01) ==
LOC: MW.ED 07:14
DX: N80.9 Endometriosis, unspecified (principal); G89.18 Other acute postprocedural pain; Z88.1 Allergy status to other antibiotic agents; Z88.8 Allergy status to other drugs, medicaments and biological substances
CPT/HCPCS: 36415; 74177; 74177-26; 80053; 81001; 83690; 84145; 85025; 87040; 96361; 96374; 96375; 99284; 99284-25; J1885; J2405; J3010; J3490; J7030; Q9967

== ENCOUNTER 2022-05-23 07:59 | Emergency (ER) | payer BC ==
[2022-05-23] MEDS ORDERED: Sodium Chloride 0.9% 1,000 ML IV ONE (08:41)
[2022-05-23] MEDS ORDERED: Morphine 4 MG/ML VIAL IVPUSH ONE (08:41)
[2022-05-23] MEDS ORDERED: Metoclopramide 10 MG/2 ML SDV IVPUSH ONE (08:43)
[2022-05-23] MEDS ORDERED: HYDROmorphone 2 MG/ML Syringe IVPUSH ONE ×2 (08:48→10:39)
[2022-05-23 09:36] LABS: CARBON DIOXIDE,CO2 27.4 mmol/L (21.0-32.0); POTASSIUM,K 3.9 mmol/L (3.5-5.1)
[2022-05-23] MEDS ORDERED: Ketorolac 30 MG/ML SDV IVPUSH ONE (11:39)
[2022-05-23 12:28] VITALS: BP 116/51; PULSE 74
== END 2022-05-23 12:32 | disposition home or self-care (01) ==
LOC: MW.ED 07:59
DX: R10.31 Right lower quadrant pain (principal); R10.2 Pelvic and perineal pain; Z88.1 Allergy status to other antibiotic agents; Z88.5 Allergy status to narcotic agent; Z88.8 Allergy status to other drugs, medicaments and biological substances
CPT/HCPCS: 36415; 76857; 80053; 81003; 83690; 84703; 85025; 96374; 96375; 96376; 99284; J1170; J1885; J2765; J7030

== ENCOUNTER 2022-06-29 08:09 | Day surgery (SDC) | payer BC ==
[2022-06-29] MEDS ORDERED: Ondansetron 4 MG/2 ML SDV IVPUSH PRN (08:22)
[2022-06-29] MEDS ORDERED: HYDROmorphone 1 MG/ML Syringe IVPUSH PRN (08:22)
[2022-06-29] MEDS ORDERED: Naloxone 0.4 MG/ML SDV IVPUSH PRN (08:22)
[2022-06-29] MEDS ORDERED: Albuterol 0.083% 2.5 MG/3 ML Neb Soln NEB PRN (08:22)
[2022-06-29] MEDS ORDERED: fentaNYL 50 MCG/ML SDV IVPUSH PRN (08:22)
[2022-06-29] MEDS ORDERED: Metoclopramide 10 MG/2 ML SDV IVPUSH PRN (08:22)
[2022-06-29] MEDS ORDERED: Propofol 200 MG/20 ML SDV ONE (08:46)
[2022-06-29] MEDS ORDERED: fentaNYL 100 MCG/2 ML SDV ONE (08:46)
[2022-06-29] MEDS ORDERED: Acetaminophen/HYDROcodone 325-5 MG Tab PO PRN (09:40)
[2022-06-29] MEDS ORDERED: Ketorolac 30 MG/ML SDV IVPUSH ONE (09:40)
[2022-06-29] MEDS ORDERED: Ondansetron 4 MG/2 ML SDV ONE (09:45)
[2022-06-29] MEDS ORDERED: Dexamethasone 4 MG/ML 5 ML MDV ONE (09:45)
[2022-06-29 09:46] VITALS: BP 113/82; PULSE 80
== END 2022-06-29 10:46 | disposition home or self-care (01) ==
LOC: MW.SDS 08:09 → EDSTATUS 12:30
PROVIDERS: ATTEND Obstetrics & Gynecology
DX: N93.9 Abnormal uterine and vaginal bleeding, unspecified (principal); J45.909 Unspecified asthma, uncomplicated; F41.9 Anxiety disorder, unspecified; F33.9 Major depressive disorder, recurrent, unspecified; N80.9 Endometriosis, unspecified; Z88.6 Allergy status to analgesic agent; Z88.1 Allergy status to other antibiotic agents; Z88.8 Allergy status to other drugs, medicaments and biological substances; Z88.7 Allergy status to serum and vaccine; Z90.49 Acquired absence of other specified parts of digestive tract; Z98.890 Other specified postprocedural states; Z79.899 Other long term (current) drug therapy
CPT/HCPCS: 58300; 81025; J1100; J2405; J2704; J3010; 00940

== ENCOUNTER 2022-07-01 21:12 | Emergency (ER) | payer BC ==
[2022-07-01] MEDS ORDERED: Acetaminophen 500 MG Tab PO ONE (21:26)
[2022-07-01] MEDS ORDERED: Ondansetron 4 MG Tab.DIS PO ONE (21:26)
[2022-07-01 23:43] VITALS: BP 107/60; PULSE 88
== END 2022-07-01 22:45 | disposition home or self-care (01) ==
LOC: MW.ED 21:12
DX: R56.9 Unspecified convulsions (principal); Z88.1 Allergy status to other antibiotic agents; Z88.5 Allergy status to narcotic agent; Z88.8 Allergy status to other drugs, medicaments and biological substances
CPT/HCPCS: 99284; A9270

== ENCOUNTER 2024-06-04 09:01 | Emergency (ER) | payer BC, OTHER ==
[2024-06-04 09:13] VITALS: BP 119/73
[2024-06-04 11:01] LABS: CORONAVIRUS COVID-19 NAA NEGATIVE (NEGATIVE); INFLUENZA A NAA NEGATIVE (NEGATIVE); INFLUENZA B NAA NEGATIVE (NEGATIVE); RESPIRATORY SYNCYTIAL VIR NAA NEGATIVE (NEGATIVE)
[2024-06-04 11:27] VITALS: PULSE 83
== END 2024-06-04 11:27 | disposition home or self-care (01) ==
LOC: MW.ED 09:01
DX: J32.9 Chronic sinusitis, unspecified (principal); J45.909 Unspecified asthma, uncomplicated; Z79.899 Other long term (current) drug therapy; Z88.0 Allergy status to penicillin; Z88.5 Allergy status to narcotic agent; Z88.1 Allergy status to other antibiotic agents; Z88.8 Allergy status to other drugs, medicaments and biological substances; Z75.8 Other problems related to medical facilities and other health care
CPT/HCPCS: 0241U; 99284; 99283